=== PATIENT | female | born 1945 | race Two or more races ===

== ENCOUNTER 2025-07-07 09:26 | Outpatient (CLI) | payer OTHER ==
[2025-07-07 10:05] LABS: Hematocrit 40.5 % (36.0-46.0); Hemoglobin 13.7 g/dL (12.2-16.2); Mean Corpuscular Hemoglobin 29.9 pg (28.0-32.0); Mean Corpuscular Volume 88.5 fL (80.0-100.0); Nucleated Red Blood Cells % 0.1 %
[2025-07-07 10:13] LABS: Urine Protein, UAD Negative (Negative)
[2025-07-07 10:23] LABS: Alanine Aminotransferase 12 U/L (7-40); Albumin 4.1 g/dL (3.2-4.8); Alkaline Phosphatase 104 U/L (46-116); Anion Gap 9 (5-15); BUN/Creatinine Ratio 14.2 (10.0-20.0); Blood Urea Nitrogen 20 mg/dL (9-23); Carbon Dioxide 29 mmol/L (20-31); Chloride 106 mmol/L (98-107); Cholesterol 127 mg/dL (< 200); Glucose 82 mg/dL (74-106); HDL Cholesterol 52 mg/dL (40-59); Potassium 3.9 mmol/L (3.5-5.1); Sodium 144 mmol/L (136-145); Total Protein 7.0 g/dL (5.7-8.2); Triglycerides 78 mg/dL (< 150)
[2025-07-07 10:27] LABS: Bilirubin, Total 2.1 mg/dL (0.2-1.0); Calcium 10.5 mg/dL (8.7-10.4)
== END 2025-07-07 17:00 | disposition home or self-care (01) ==
LOC: LAB 09:26
PROVIDERS: ATTEND Internal Medicine
DX: Z13.1 Encounter for screening for diabetes mellitus (principal); Z00.01 Encounter for general adult medical examination with abnormal findings
CPT/HCPCS: 36415; 80053; 80061; 81001; 83036; 84439; 84443; 85025

== ENCOUNTER 2025-09-26 03:56 | Inpatient (IN) | payer OTHER ==
[~2025-09-26] VITALS: Ht 162.6 cm; Wt 93.6 kg
--- NOTE | 2025-09-26 04:05 | ECG ---
[facility] Test Date: 2025-09-26 Test Time: 04:01:06 Pat Name: KELSEA WARREN Department: ED Room: 0290T Gender: F Bandoleer Packer: ARCELIA : 1945 Requested By: VANESSA PETER Order Number: [id number] Reading MD: Nelson Alan Measurements Intervals [place] Rate: 64 P: 51 WA: 168 QRS: 51 QRSD: 127 T: 67 QT: 477 QTc: 493 Interpretive Statements Sinus rhythm Atrial premature complex IVCD, consider atypical LBBB Baseline wander in lead(s) I,aVR,aVL Electronically Signed On 09-30-2025 14:57:27 PST by Nelson Alan Please click the below link to view image of tracing.
--- NOTE | 2025-09-26 04:13 | ED.PDOC ---
GI ASSESSMENT HPI Comments 79-year-old female who came to ER via EMS for abdominal pain. As of 10:00 p.m. last night, she started complaining of right lower quadrant abdominal pain in the, intermittent, nonradiating, 8/10 intensity, associated bouts of nausea and vomiting. Since last bowel movement was 2 days ago. She also complaining of headaches. Patient was given Zofran and Tylenol by paramedics while EN route to the ER Chief Complaint: Abdominal Pain Time Seen by MD: 04:13 Reviewed Notes: Nursery Nurse Notes Allergies: Coded Allergies: NO KNOWN ALLERGIES (Unverified , 09/26/25) Information Source: Patient, Emergency Med Personnel Mode of Arrival: EMS Timing: Hours Duration: Intermittent Past Medical History PAST MEDICAL HISTORY: High Lipids Surgical History (Other): Left hip surgery ALIGNMENT MECHANIC History: Denies all ALIGNMENT MECHANIC Hx Family History Family History: Reviewed,noncontributory to illness Social History Smoker: Non-Smoker Alcohol: Denies ETOH Use Drugs: Denies Drug Use Lives In: Home Constitutional: denies: chills, diaphoresis, fatigue, fever, malaise, sweats, weakness, others EENTM: denies: blurred vision, double vision, ear bleeding, ear discharge, ear drainage, ear pain, ear ringing, eye pain, eye redness, hearing loss, mouth pain, mouth swelling, nasal discharge, nose bleeding, nose congestion, nose pain, photophobia, tearing, throat pain, throat swelling, voice changes, others Respiratory: denies: cough, hemoptysis, orthopnea, SOB at rest, shortness of breath, SOB with excertion, stridor, wheezing, others Cardiovascular: denies: chest pain, dizzy spells, diaphoresis, Dyspnea on exertion, edema, irregular heart beat, left arm pain, lightheadedness, palpitations, PND, syncope, others Gastrointestinal: reports: abdominal pain, constipated, nausea, vomiting; denies: abdomen distended, blood streaked bowels, diarrhea, dysphagia, difficulty swallowing, hematemesis, melena, poor appetite, poor fluid intake, re ctal bleeding, rectal pain, others Genitourinary: denies: abnormal vagina bleeding, burning, dyspareunia, dysuria, flank pain, frequency, hematuria, incontinence, pain, , vagina discharge, urgency, others Neurological: reports: headache; denies: dizziness, fainting, left sided numbness, left sided weakness, numbness, paresthesia, pre-existing deficit, right sided numbness, right sided weakness, seizure, speech problems, tingling, tremors, weakness, others Musculoskeletal: denies: back pain, gout, joint pain, joint swelling, muscle pain, muscle stiffness, neck pain, others Integumetry: denies: bruises, change in color, change in hair/nails, dryness, laceration, lesions, lumps, rash, wounds, others Allergic/Immunocompromised: denies: Difficulty Healing, Frequent Infections, Hives, Itching, others Hematologic/Lymphatic: denies: anemia, blood clots, easy bleeding, easy bruising, swollen glands, others Endocrine: denies: excessive hunger, excessive sweating, excessive thirst, excessive urination, flushing, intolerance to cold, intolerance to heat, unexplained weight gain, unexplained weight loss, others Psychiatric: denies: anxiety, bipolar disorder, depression, hopeless, panic disorder, schizophrenia, sleepless, suicidal, others Physical Exam General Appearance: Moderate Distress, Normal HEENT: Normal ENT Inspection, Pharynx Normal, TMs Normal Neck: Full Range of Motion, Non-Tender, Normal, Normal Inspection Respiratory: Chest Non-Tender, Lungs Clear, No Accessory Muscle Use, No Respiratory Distress, Normal Breath Sounds Cardiovascular: No Edema, No JVD, No Murmur, No Gallop, Normal Peripheral Pulses, Regular Rate/Rhythm Breast Exam: Deferred Gastrointestinal: Diffuse, No Organomegaly, No Pulsatile Mass, Normal Bowel Sounds, Soft Genitalia: Deferred Pelvic: Deferred Rectal: Deferred Extremities: No calf tenderness, Normal capillary refill, Normal inspection, Normal range of motion, Non-tender, No pedal edema Musculoskeletal : Apperance: Normal Neurologic: Alert, wire temperer II-XII nml as Tested, No Motor Deficits, Normal Affect, Normal Mood, No Sensory Deficits Cerebellar Function: NOT DONE Reflexes: NOT DONE Skin: Dry, Normal Color, Warm Peripheral Pulses: 3+ Radial (R), 3+ Radial (L) Lymphatic: No Adenopathy Was a procedure done? Was a procedure done?: No GI differential Dx Differential Diagnosis: Constipation, Diverticular disease, Esophagitis, Gastritis/PUD, Gastroenteritis, Pancreatitis, UTI, Electrolyte Imbalance, Food Poisoning X-Ray, Labs, Meds, VS Vital Signs Date Time Temp Pulse Resp B/P (MAP) Pulse Ox O2 Delivery O2 Flow Rate FiO2 09/26/25 07:54 67 20 94 Nasal Cannula* 2 09/26/25 07:53 97.6 67 20 107/52 (70) 94 97.6 09/26/25 06:47 64 17 114/69 09/26/25 06:36 69 17 95 Nasal Cannula* 2 09/26/25 06:35 98.0 69 17 114/69 (84) 95 98.0 09/26/25 06:17 72 20 165/90 09/26/25 06:08 97.7 72 20 165/70 (101) 97 97.7 09/26/25 04:05 98.7 65 22 139/59 95 98.7 09/26/25 04:01 64 Lab Test 09/26/25 05:15 Range/Units White Blood Count 8.4 4.4-10.8 10^3/uL Red Blood Count 4.54 4.0-5.20 10^6/uL Hemoglobin 13.5 12.2-16.2 g/dL Hematocrit 39.6 36.0-46.0 % Mean Corpuscular Volume 87.3 80.0-100.0 fL Mean Corpuscular Hemoglobin 29.8 28.0-32.0 pg Mean Corpuscular Hemoglobin Concent 34.1 32.0-36.0 g/dL Red Cell Distribution Width 15.0 H 11.8-14.3 % Platelet Count 188 140-450 10^3/uL Mean Platelet Volume 8.3 6.9-10.8 fL Neutrophils (%) (Auto) 89.3 H 37.0-80.0 % Lymphocytes (%) (Auto) 7.5 L 10.0-50.0 % Monocytes (%) (Auto) 3.0 0.0-12.0 % Eosinophils (%) (Auto) 0.1 0.0-7.0 % Basophils (%) (Auto) 0.1 0.0-2.0 % Neutrophils # (Auto) 7.5 1.6-8.6 10 ^3/uL Lymphocytes # (Auto) 0.6 0.4-5.4 10 ^3/uL Monocytes # (Auto) 0.3 0-1.3 10 ^3/uL Eosinophils # (Auto) 0 0-0.8 10 ^3/uL Basophils # (Auto) 0 0-0.2 10 ^3/uL Nucleated Red Blood Cells 0.1 % Sodium Level 142 136-145 mmol/L Potassium Level 3.9 3.5-5.1 mmol/L Chloride Level 102 98-107 mmol/L Carbon Dioxide Level 28 20-31 mmol/L Anion Gap 12 5-15 Blood Urea Nitrogen 26 H 9-23 mg/dL Creatinine 1.24 H 0.550-1.02 mg/dL Glomerular Filtration Rate Calc 44 >90 mL/min BUN/Creatinine Ratio 21.0 H 10.0-20.0 Serum Glucose 173 H 74-106 mg/dL Calcium Level 11.8 H 8.7-10.4 mg/dL Total Bilirubin 2.3 H 0.2-1.0 mg/dL Aspartate Amino Transferase (AST) 30 13-40 U/L Alanine Aminotransferase (ALT) 16 7-40 U/L Alkaline Phosphatase 109 46-116 U/L Total Protein 7.3 5.7-8.2 g/dL Albumin 4.5 3.2-4.8 g/dL Lipase 26 12-53 U/L Current Medications Medications (Trade) Dose Ordered Sig/Anthony Route Start Time Stop Time Status Last Admin Ondansetron HCl (Zofran) 4 mg ONCE ONCE IV 09/26/25 04:30 09/26/25 04:31 DC 09/26/25 06:17 Sodium Chloride 1,000 ml @ 1,000 mls/hr Q1H ONCE IVB 09/26/25 04:30 09/26/25 05:29 DC 09/26/25 06:17 Morphine Sulfate 4 mg ONCE ONCE IV 09/26/25 04:30 09/26/25 04:31 DC 09/26/25 06:17 Patient alert. Vitals stable. Came in for abdominal pain. Blood sugar elevated. Establish intravenous access. Was given fluids. Was given pain medication. WBC within normal limits. Blood pressure elevated. Explained to the patient. Continue monitoring. Time of 1ST Reevaluation: 04:10 Reevaluation 1ST: Unchanged Patient Education/Counseling: Diagnosis, Treatment Family Education/Counseling: No Family Present SEPSIS Sepsis Screen Physician Orders Urinalysis (09/26/25 04:22) Ct Ab Pel With Iv Con Only (09/26/25 04:22) Vital Signs Date Time Temp Pulse Resp B/P (MAP) Pulse Ox O2 Delivery O2 Flow Rate FiO2 09/26/25 07:54 67 20 94 Nasal Cannula* 2 09/26/25 07:53 97.6 67 20 107/52 (70) 94 97.6 09/26/25 06:47 64 17 114/69 09/26/25 06:36 69 17 95 Nasal Cannula* 2 09/26/25 06:35 98.0 69 17 114/69 (84) 95 98.0 09/26/25 06:17 72 20 165/90 09/26/25 06:08 97.7 72 20 165/70 (101) 97 97.7 09/26/25 04:05 98.7 65 22 139/59 95 98.7 09/26/25 04:01 64 Laboratory Tests Test 09/26/25 05:15 White Blood Count 8.4 10^3/uL (4.4-10.8) Medications Medications Dose Ordered Sig/Anthony Route Start Time Stop Time Status Last Admin Dose Admin Morphine Sulfate 4 mg ONCE ONCE IV 09/26/25 04:30 09/26/25 04:31 DC 09/26/25 06:17 Ondansetron HCl 4 mg ONCE ONCE IV 09/26/25 04:30 09/26/25 04:31 DC 09/26/25 06:17 Sodium Chloride 1,000 ml @ 1,000 mls/hr Q1H ONCE IVB 09/26/25 04:30 09/26/25 05:29 DC 09/26/25 06:17 Departure 1 Departure Time of Disposition: 08:03 Impression: Primary Impression: Acute abdominal pain Additional Impressions: Hypertensive urgency Uncontrolled diabetes mellitus Qualified Codes: E13.65 - Other specified diabetes mellitus with hyperglycemia Disposition: 09 ADMITTED INPATIENT Admit to: Med Surg Condition: Guarded Critical Care Note Critical Care Time?: No Stability Stability form required: No Heart Score Heart Score: Heart Score Response (Comments) Value History N/A 0 EKG N/A 0 Age N/A 0 Risk Factors N/A 0 Troponin N/A 0 Total 0 I personally scribed for VANESSA PETER MD ([email or web address]) on 09/26/25 at 04:13. Electronically submitted by Jarad Ramesh ([email or web address]). VANESSA PETER MD Sep 26, 2025 04:13 COMPA AG MD Sep 26, 2025 08:04
[2025-09-26] MEDS: MORPHINE SULFATE 4 MG/ML SYR/VIAL IV ONE (06:17)
[2025-09-26] MEDS: SODIUM CHLORIDE 0.9% 1,000 ML IVB ONE (06:17)
[2025-09-26] MEDS: ONDANSETRON HCL 4 MG/2 ML VIAL IV ONE (06:17)
[2025-09-26 06:32] LABS: Hematocrit 39.6 % (36.0-46.0); Hemoglobin 13.5 g/dL (12.2-16.2); Mean Corpuscular Hemoglobin 29.8 pg (28.0-32.0); Mean Corpuscular Volume 87.3 fL (80.0-100.0); Nucleated Red Blood Cells % 0.1 %
[2025-09-26 06:36] VITALS: PULSE 69; RESP 17; O2SAT 95
[2025-09-26 06:49] LABS: Alanine Aminotransferase 16 U/L (7-40); Albumin 4.5 g/dL (3.2-4.8); Alkaline Phosphatase 109 U/L (46-116); Anion Gap 12 (5-15); BUN/Creatinine Ratio 21.0 (10.0-20.0); Carbon Dioxide 28 mmol/L (20-31); Chloride 102 mmol/L (98-107); Lipase 26 U/L (12-53); Potassium 3.9 mmol/L (3.5-5.1); Sodium 142 mmol/L (136-145); Total Protein 7.3 g/dL (5.7-8.2)
[2025-09-26 06:53] LABS: Bilirubin, Total 2.3 mg/dL (0.2-1.0); Blood Urea Nitrogen 26 mg/dL (9-23); Calcium 11.8 mg/dL (8.7-10.4); Glucose 173 mg/dL (74-106)
[2025-09-26 07:54] VITALS: PULSE 67; RESP 20; O2SAT 94
[2025-09-26] MEDS: IOHEXOL 300 MG/ML 100ML BOTTLE IJ ONE (08:14)
--- NOTE | 2025-09-26 08:33 | DVH ---
Exam: CT CT AB PEL WITH IV CON ONLY History: abd pain COMPARISON: None Technique: Multidetector spiral CT of the abdomen and pelvis was performed from lung bases to pubic symphysis. Intravenous contrast was administered during this examination. Portal venous imaging was obtained. Axial, coronal and sagittal multiplanar reformats were performed by the technologist on a separate workstation. Radiation Dose : 1. Abdomen/Pelvis: CTDIvol 21 mGy, DLP 1086 mGy*cm. Findings: Lung Bases: No acute or significant lung base finding. Normal heart size. No pleural or pericardial effusion. Liver: The liver is normal in size. No focal lesions. Normal hepatic vascular enhancement. Gallbladder and Biliary Tree: Post cholecystectomy. Spleen: Unremarkable Pancreas: The pancreas is normal in appearance without focal lesions or abnormal enhancement. Adrenal Glands: Unremarkable Kidneys: No hydronephrosis. Bladder: Unremarkable Bowel: Large hiatal hernia containing most of the stomach in the left posterior hemithorax. The stomach is moderately distended with fluid. Moderate wall thickening of the gastric antrum. Moderate wall thickening of the descending and rectosigmoid colon. Colonic diverticulosis. Moderate volume colonic stool. Moderate to large volume stool in the rectum. The small bowel is normal in caliber and distribution. The appendix is not visualized; however, no secondary findings of acute appendicitis identified. Ascites: Absent Lymphadenopathy: No mesenteric, retroperitoneal or periportal lymphadenopathy. Abdominal Wall and Mesentery: Small fat containing umbilical hernia. Vasculature: The visualized abdominal aorta is normal in size and caliber. Abdominal and pelvic vessels demonstrate normal enhancement. Pelvic Organs: Unremarkable Musculoskeletal: Degenerative changes of the spine. Left hip arthroplasty. Moderate to severe degenerative changes of the right hip. No aggressive focal bony lesions, acute fractures or dislocation. IMPRESSION: Large hiatal hernia containing most of the stomach in the left posterior hemithorax. The stomach is moderately distended with fluid. Moderate wall thickening of the gastric antrum ; nonspecific and possibly gastritis. Moderate wall thickening of the descending and rectosigmoid colon. This may be related to underdistention or mild colitis. Moderate to large volume stool in the rectum. Colonic diverticulosis. Radiation optimization: All CT scans at this facility use at least one of these dose optimization techniques: automated exposure control mA and/or kV adjustment per patient size (includes targeted exams where dose is matched to clinical indication) or iterative reconstruction.
[2025-09-26] MEDS: SODIUM CHLORIDE 0.9% 1,000 ML IV SCH (10:15)
[2025-09-26] MEDS: SODIUM CHLORIDE 0.9% 500 ML IV ONE (10:15)
[2025-09-26] MEDS ORDERED: MORPHINE SULFATE INJ 2 MG/ml SYRG IV PRN (10:15)
[2025-09-26] MEDS ORDERED: POLYETHYLENE GLYCOL 17 GM PWDR PO PRN (10:15)
[2025-09-26] MEDS ORDERED: NITROGLYCERIN 0.4 MG SL TAB SL PRN (10:15)
--- NOTE | 2025-09-26 10:22 | DVHHPRES ---
History of Present Illness Resident Creating Document: OZIEL MARQUEZ RESIDENT History of Present Illness Christine Bradshaw is a 79-year-old female patient who presents to the ED with chief complaint of generalized weakness with mechanical fall no loss of consciousness or trauma to her left hip, with posterior nausea and nonbloody vomiting with brown/white emesis, patient believes these symptoms were secondary to eating excessively in at 3:00 p.m.. Patient also reports intentional weight loss of over 50 lb in the past two months (234 lb to 189 lb), she is avoiding sweets. Patient did present episode of nonbloody diarrhea approximately one month ago with lasted five days (4-5 bowel movements with brown stool a day of watery stool), which then was followed by constipation which will last a proximally three days. Patient also presents numbness on right upper limb which is exacerbation after sleeping. Denies any other associated symptom. Past medical history: Hypertension, gastritis, diverticulosis, GERD, COPD with previous home oxygen requirement (has been weaned off one year ago) arthritis, one episode of seizures a proximally one year ago in [place] (no antiseizure medication), chronic kidney disease stage IIIB, bladder prolapse status postop with recurrence. Surgical history: Bilateral knee replacement: Cholecystectomy, left hip replacement, prolapse repair, colonoscopy five years ago within normal limits Family history: Mother had colon cancer Social history: Lives in [place] with family (next of kin daughter). Suffered from secondhand smoking. Denies current tobacco, alcohol and other drug abuse Allergies: Denies Home medication: Amlodipine, pantoprazole, hydrochlorothiazide, citalopram Patient seen and examined at bedside. Currently has no new complaints. Admitted for further evaluation. Past Medical History Per HPI Past Surgical History Per HPI Family History Per HPI Past Social History Per HPI Review of Systems Review of Systems Per HPI Allergies: Coded Allergies: NO KNOWN ALLERGIES (Unverified , 09/26/25) Exam Vital Signs Vital Signs Date Time Temp Pulse Resp B/P (MAP) Pulse Ox O2 Delivery O2 Flow Rate FiO2 09/26/25 07:54 67 20 94 Nasal Cannula* 2 09/26/25 07:53 97.6 107/52 (70) 97.6 Exam Patient lying in bed, in no acute distress General: Lucid, afebrile, mucosae are dry Cardiovascular: Normal S1 and S2. No murmurs, gallops or rubs Respiratory: Normal ventilation mechanics. Clear lung sounds on auscultation Abdomen: Soft, mild tenderness on palpation in epigastrium and right upper quadrant, positive Jean's sign, rest of abdomen nontender, no organomegaly, normal bowel sounds, can hear bowel sounds in left hemithorax MSK/skin: Mobilizes 4 limbs. Skin is dry and warm Neurological: Oriented in 3 spheres. No motor no sensitive deficits. Pupils are isocoric and reactive Labs/Xrays Labs Test 09/26/25 05:15 Range/Units White Blood Count 8.4 4.4-10.8 10^3/uL Red Blood Count 4.54 4.0-5.20 10^6/uL Hemoglobin 13.5 12.2-16.2 g/dL Hematocrit 39.6 36.0-46.0 % Mean Corpuscular Volume 87.3 80.0-100.0 fL Mean Corpuscular Hemoglobin 29.8 28.0-32.0 pg Mean Corpuscular Hemoglobin Concent 34.1 32.0-36.0 g/dL Red Cell Distribution Width 15.0 H 11.8-14.3 % Platelet Count 188 140-450 10^3/uL Mean Platelet Volume 8.3 6.9-10.8 fL Neutrophils (%) (Auto) 89.3 H 37.0-80.0 % Lymphocytes (%) (Auto) 7.5 L 10.0-50.0 % Monocytes (%) (Auto) 3.0 0.0-12.0 % Eosinophils (%) (Auto) 0.1 0.0-7.0 % Basophils (%) (Auto) 0.1 0.0-2.0 % Neutrophils # (Auto) 7.5 1.6-8.6 10 ^3/uL Lymphocytes # (Auto) 0.6 0.4-5.4 10 ^3/uL Monocytes # (Auto) 0.3 0-1.3 10 ^3/uL Eosinophils # (Auto) 0 0-0.8 10 ^3/uL Basophils # (Auto) 0 0-0.2 10 ^3/uL Nucleated Red Blood Cells 0.1 % Sodium Level 142 136-145 mmol/L Potassium Level 3.9 3.5-5.1 mmol/L Chloride Level 102 98-107 mmol/L Carbon Dioxide Level 28 20-31 mmol/L Anion Gap 12 5-15 Blood Urea Nitrogen 26 H 9-23 mg/dL Creatinine 1.24 H 0.550-1.02 mg/dL Glomerular Filtration Rate Calc 44 >90 mL/min BUN/Creatinine Ratio 21.0 H 10.0-20.0 Serum Glucose 173 H 74-106 mg/dL Calcium Level 11.8 H 8.7-10.4 mg/dL Total Bilirubin 2.3 H 0.2-1.0 mg/dL Aspartate Amino Transferase (AST) 30 13-40 U/L Alanine Aminotransferase (ALT) 16 7-40 U/L Alkaline Phosphatase 109 46-116 U/L Total Protein 7.3 5.7-8.2 g/dL Albumin 4.5 3.2-4.8 g/dL Lipase 26 12-53 U/L SEPSIS Sepsis Screen Date sepsis recognized/suspect: Sep 26, 2025 Time Sepsis recognized/suspect: 639 Recent Procedure: No On Antibiotic Therapy: No Respiratory Rate >20: No Heart Rate >90: No Temp<36 C (96.8 F) or >38.3 C: No SBP <90 or MAP <65 mmHG: No New Acute Mental Status Change: No Is the patient on CPAP, BIPAP,: No Physician Orders Urinalysis (09/26/25 04:22) Ct Ab Pel With Iv Con Only (09/26/25 04:22) Vitamin D, 25-Hydroxy (09/26/25 10:15) Vitamin B12 (09/26/25 10:15) Urinalysis (09/26/25 10:15) Thyroid Stimulating Hormone (09/26/25 10:15) PTPTT (09/26/25 10:15) Phosphorus (09/26/25 10:15) Magnesium (09/26/25 10:15) Lipid Panel (09/26/25 10:15) Lipase (09/26/25 10:15) Lactic Acid W/ Reflex Order (09/26/25 10:15) Hemoglobin A1c (09/26/25 10:15) Drug Screen (09/26/25 10:15) Ammonia (09/26/25 10:15) Complete Blood Count (09/26/25 10:15) Comprehensive Metabolic Panel (09/26/25 10:15) Admit (09/26/25 10:15) Code Status (09/26/25 10:15) Acetaminophen Tablet (Tylenol Tablet) (09/26/25 10:15) Ondansetron Hcl (Zofran) (09/26/25 10:15) Complete Blood Count (09/27/25 04:00) Comprehensive Metabolic Panel (09/27/25 04:00) Npo (Nothing By Mouth) Diet (09/26/25 Lunch) Echo 2d Mode Cardiac Dop (09/26/25 10:15) Lovenox 40mg (09/27/25 10:00) Nitroglycerin Sublingual (Ntrostat Subli (09/26/25 10:15) Morphine Sulfate Injection (09/26/25 10:15) Oxygen By Nasal Cannula (09/26/25 10:15) Stat Ekg For Chest Pain (09/26/25 10:15) Notify Md Of Changes From Base (09/26/25 10:15) Sand Sifter For 24 Hours (09/26/25 10:15) Emergency Dysrhythmia Protocol (09/26/25 10:15) Rhythm Strips Once Every Shift (09/26/25 10:15) Parathyroid Hormone Intact (09/26/25 10:15) NS (09/26/25 10:15) NS (09/26/25 10:15) Polyethylene Glycol 17g Powder (Miralax (09/26/25 10:15) Vital Signs Date Time Temp Pulse Resp B/P (MAP) Pulse Ox O2 Delivery O2 Flow Rate FiO2 09/26/25 07:54 67 20 94 Nasal Cannula* 12 2709/26/25 07:53 97.6 67 20 107/52 (70) 94 97.6 09/26/25 06:47 64 17 114/69 09/26/25 06:36 69 17 95 Nasal Cannula* 2 09/26/25 06:35 98.0 69 17 114/69 (84) 95 98.0 09/26/25 06:17 72 20 165/90 09/26/25 06:08 97.7 72 20 165/70 (101) 97 97.7 09/26/25 04:05 98.7 65 22 139/59 95 98.7 09/26/25 04:01 64 Laboratory Tests Test 09/26/25 05:15 White Blood Count 8.4 10^3/uL (4.4-10.8) Medications Medications Dose Ordered Sig/Anthony Route Start Time Stop Time Status Last Admin Dose Admin Morphine Sulfate 4 mg ONCE ONCE IV 09/26/25 04:30 09/26/25 04:31 DC 09/26/25 06:17 4 MG Ondansetron HCl 4 mg ONCE ONCE IV 09/26/25 04:30 09/26/25 04:31 DC 09/26/25 06:17 4 MG Sodium Chloride 1,000 ml @ 1,000 mls/hr Q1H ONCE IVB 09/26/25 04:30 09/26/25 05:29 DC 09/26/25 06:17 1,000 MLS/HR Assessment/Plan Assessment/Plan ASSESSMENT Symptomatic hypercalcemia (generalized weakness and constipation) - probably secondary to hydrochlorothiazide Mechanical fall secondary to generalized weakness Rule out GI obstruction SUKHWINDER hemodynamically mediated (VMN) on CKD stage 3 B Large hiatal hernia Probable Colitis Gastritis GERD Rule out left hip fracture (previous left hip replacement) disease Hyperbilirubinemia COPD History of seizures Status post bilateral knee replacement Status post cholecystectomy Status post bladder prolapse repair with recurrence Obesity PLAN Patient admitted to telemetry Completed abdomen and pelvis CT which showed large hiatal hernia and left hemithorax, colitis, large stool burden and moderate gastric antrum thickening (compatible with gastritis) Probable cause of hypercalcemia is hydrochlorothiazide. Discontinued. Indicated IV fluids, IV pantoprazole and NPO. Indicated Fleet enema. Ordered PTH Ordered Gastrografin to rule out obstruction If patient presents obstruction, consult rn neurosurgical. Ordered x-ray of left hip and pelvis. Goals of care discussed with patient for over 18 minutes: DNR/DNI Discussed plan with Dr. Trinidad, patient and nurses: Patient admitted to telemetry. Currently with IV fluids, IV pantoprazole, NPO, and Fleet enema. Pending complementary workup to rule out GI obstruction. Probable cause of hypercalcemia is hydrochlorothiazide, discontinued the this time. Plan discussed with: Patient, Other My Orders Orders - OZIEL MARQUEZ RESIDENT Procedure Category Date Status Time Vitamin D, 25-Hydroxy LAB 09/26/25 Transmitted 10:15 Vitamin B12 LAB 09/26/25 Transmitted 10:15 Urinalysis LAB 09/26/25 Transmitted 10:15 Thyroid Stimulating LAB 09/26/25 Transmitted Hormone 10:15 PTPTT LAB 09/26/25 Transmitted 10:15 Phosphorus LAB 09/26/25 Transmitted 10:15 Magnesium LAB 09/26/25 Transmitted 10:15 Lipid Panel LAB 09/26/25 Transmitted 10:15 Lipase LAB 09/26/25 Transmitted 10:15 Lactic Acid W/ Reflex LAB 09/26/25 Transmitted Order 10:15 Hemoglobin A1c LAB 09/26/25 Transmitted 10:15 Drug Screen LAB 09/26/25 Transmitted 10:15 Ammonia LAB 09/26/25 Transmitted 10:15 Complete Blood Count LAB 09/26/25 Transmitted 10:15 Comprehensive LAB 09/26/25 Transmitted Metabolic Panel 10:15 Admit ADMIT 09/26/25 Transmitted 10:15 Code Status CODE 09/26/25 Transmitted 10:15 Acetaminophen Tablet PHA 09/26/25 Transmitted (Tylenol Tablet) 10:15 Ondansetron Hcl PHA 09/26/25 Transmitted (Zofran) 10:15 Complete Blood Count LAB 09/27/25 Verified 04:00 Comprehensive LAB 09/27/25 Verified Metabolic Panel 04:00 Npo (Nothing By DIET 09/26/25 Transmitted Mouth) Diet Lunch Echo 2d Mode Cardiac US 09/26/25 Transmitted DOP 10:15 Lovenox 40mg PHA 09/27/25 Transmitted 10:00 Nitroglycerin PHA 09/26/25 Verified Sublingual (Ntrostat 10:15 Morphine Sulfate PHA 09/26/25 Verified Injection 10:15 Oxygen By Nasal RT 09/26/25 Verified Cannula 10:15 Stat Ekg For Chest [facility] 09/26/25 Verified Pain 10:15 Notify Md Of Changes [facility] 09/26/25 Verified From Base 10:15 Sand Sifter For [facility] 09/26/25 Verified 24 Hours 10:15 Emergency Dysrhythmia [facility] 09/26/25 Verified Protocol 10:15 Rhythm Strips Once [facility] 09/26/25 Verified Every Shift 10:15 Parathyroid Hormone LAB 09/26/25 Verified Intact 10:15 NS PHA 09/26/25 Verified 10:15 NS PHA 09/26/25 Verified 10:15 Polyethylene Glycol PHA 09/26/25 Verified 17g Powder (Miralax 10:15 Date of Service: Sep 26, 2025 Billing Provider: JOSEMANUEL TRINIDAD MD Common Visit Codes: 72089-[id number] INP/OBS CARE (HIGH) Secondary Visit Codes: 45145-[id number] CARE PLAN 30 MINUTES OZIEL MARQUEZ RESIDENT Sep 26, 2025 10:22
[2025-09-26] MEDS: FLEET ENEMA(ADULT) 135 ML PR ONE (10:30)
[2025-09-26 10:52] LABS: Urine Protein, UAD 1+ (Negative)
[2025-09-26 11:06] LABS: Opiate Scree,Urine Neg (NEGATIVE)
[2025-09-26 11:08] LABS: Amphetamine Screen, Urine Neg (NEGATIVE); Barbiturate Scree,Urine Neg (NEGATIVE); Benzodiazephine Screen, Urine Neg (NEGATIVE); Cannabinoid Screen, Urine Neg (NEGATIVE); Cocaine Screen, Urine Neg (NEGATIVE); Phencyclidine Screen, Urine Neg (NEGATIVE)
--- NOTE | 2025-09-26 11:18 | DVH ---
CHEST RADIOGRAPH Indication: SOB Technique: Single frontal view of the chest was obtained COMPARISON: None FINDINGS: Cardiomegaly. Mild vascular congestion. Small left pleural effusion. Left midlung atelectasis. No pneumothorax. No acute osseous abnormality IMPRESSION: Cardiomegaly. Mild vascular congestion. Small left pleural effusion.
[2025-09-26 11:34] LABS: Hematocrit 36.3 % (36.0-46.0); Hemoglobin 12.1 g/dL (12.2-16.2); Mean Corpuscular Hemoglobin 29.3 pg (28.0-32.0); Mean Corpuscular Volume 88.3 fL (80.0-100.0); Nucleated Red Blood Cells % 0.0 %
[2025-09-26] MEDS: PANTOPRAZOLE 40 MG/10 ML VIAL INJ IV ONE (11:45)
[2025-09-26 11:47] LABS: INR 1.07 (0.9-1.15); Partial Thromboplastin Time 27.3 SEC (24.5-34.5); Prothrombin Time 11.3 sec (9.3-11.8)
[2025-09-26 11:54] LABS: Alanine Aminotransferase 16 U/L (7-40); Albumin 3.8 g/dL (3.2-4.8); Alkaline Phosphatase 99 U/L (46-116); Anion Gap 9 (5-15); BUN/Creatinine Ratio 18.2 (10.0-20.0); Carbon Dioxide 30 mmol/L (20-31); Chloride 105 mmol/L (98-107); Cholesterol 106 mg/dL (< 200); Glucose 95 mg/dL (74-106); HDL Cholesterol 53 mg/dL (40-59); Magnesium 1.7 mg/dL (1.6-2.6); Potassium 4.0 mmol/L (3.5-5.1); Sodium 144 mmol/L (136-145); Total Protein 6.4 g/dL (5.7-8.2); Triglycerides 57 mg/dL (< 150)
[2025-09-26 12:03] LABS: Bilirubin, Total 1.7 mg/dL (0.2-1.0); Blood Urea Nitrogen 25 mg/dL (9-23); Calcium 10.9 mg/dL (8.7-10.4)
[2025-09-26 12:11] LABS: Lipase 23 U/L (12-53)
--- NOTE | 2025-09-26 12:57 | DVH ---
CLINICAL INDICATION: MEchanical fall TECHNIQUE: 1 radiographic views of the pelvis were obtained. Comparison: None FINDINGS/IMPRESSION: Bipolar right hip prosthesis is in position and there is no dislocation. Possible nondisplaced fracture of the superior and inferior pubic ramus on the right.
[2025-09-26 13:16] VITALS: BP 116/78; PULSE 68; RESP 18; TEMP 98.2; O2SAT 94
[2025-09-26 17:00] VITALS: BP 114/57; PULSE 49; RESP 17; TEMP 99.1; O2SAT 98
[2025-09-26] MEDS: ACETAMINOPHEN 325 MG TAB PO PRN (19:52)
[2025-09-26 20:00] VITALS: PULSE 54; PULSE 57; RESP 17; O2SAT 95
[2025-09-26 21:00] VITALS: BP 115/62; PULSE 54; RESP 19; TEMP 98; O2SAT 95
[2025-09-26] MEDS: PANTOPRAZOLE 40 MG/10 ML VIAL INJ IV SCH (21:17)
[2025-09-27] VITALS (8 sets, daily range): BP systolic 110–139; BP diastolic 61–80; PULSE 52–75; RESP 16–19; TEMP 97.1–98.9; O2SAT 91–98
[2025-09-27 06:08] LABS: Hematocrit 34.8 % (36.0-46.0); Hemoglobin 11.7 g/dL (12.2-16.2); Mean Corpuscular Hemoglobin 29.7 pg (28.0-32.0); Mean Corpuscular Volume 88.7 fL (80.0-100.0); Nucleated Red Blood Cells % 0.1 %
[2025-09-27 06:36] LABS: Alanine Aminotransferase 13 U/L (7-40); Albumin 3.4 g/dL (3.2-4.8); Alkaline Phosphatase 78 U/L (46-116); Anion Gap 10 (5-15); BUN/Creatinine Ratio 19.8 (10.0-20.0); Calcium 9.9 mg/dL (8.7-10.4); Carbon Dioxide 27 mmol/L (20-31)
[2025-09-27 06:44] LABS: Bilirubin, Total 1.4 mg/dL (0.2-1.0); Blood Urea Nitrogen 23 mg/dL (9-23); Chloride 108 mmol/L (98-107); Glucose 69 mg/dL (74-106); Potassium 3.2 mmol/L (3.5-5.1); Sodium 145 mmol/L (136-145); Total Protein 5.6 g/dL (5.7-8.2)
[2025-09-27] MEDS: ENOXAPARIN SOD 40 MG/0.4 ML SYRINGE SC SCH (09:51)
[2025-09-28] VITALS (8 sets, daily range): BP systolic 111–130; BP diastolic 51–72; PULSE 50–70; RESP 18–20; TEMP 97.8–99.3; O2SAT 95–98
[2025-09-28 05:34] LABS: Hematocrit 33.7 % (36.0-46.0); Hemoglobin 11.2 g/dL (12.2-16.2); Mean Corpuscular Hemoglobin 29.3 pg (28.0-32.0); Mean Corpuscular Volume 88.3 fL (80.0-100.0); Nucleated Red Blood Cells % 0.0 %
[2025-09-28 05:38] LABS: Anion Gap 6 (5-15); Carbon Dioxide 30 mmol/L (20-31)
[2025-09-28 05:40] LABS: Calcium 10.1 mg/dL (8.7-10.4)
[2025-09-28 05:44] LABS: Glucose 78 mg/dL (74-106)
[2025-09-28 05:45] LABS: BUN/Creatinine Ratio 16.5 (10.0-20.0); Blood Urea Nitrogen 19 mg/dL (9-23)
[2025-09-28 05:46] LABS: Chloride 109 mmol/L (98-107); Potassium 3.2 mmol/L (3.5-5.1); Sodium 145 mmol/L (136-145)
[2025-09-28] MEDS: POTASSIUM CHL 20 Meq TABLET PO ONE (06:52)
[2025-09-28] MEDS: MAGNESIUM OXIDE 400 MG TAB PO ONE (06:53)
--- NOTE | 2025-09-28 09:29 | DVHSR ---
APPROVED REPORT EXAM: LIMITED Two-dimensional and M-mode echocardiogram with Doppler and color Doppler. Blood Pressure: 112/61 mmHg INDICATION abdominal pain RISK FACTORS Obesity: Height: 63, Weight: 200 DIMENSIONS LVDd 3.8 (3.8-5.7cm) LA (2D) 4.0 (1.9-4.0cm) Aortic Root 3.9 (2.0-3.7cm) LVDs 2.4 (2.5-4.0cm) LA (MM) (1.9-4.0cm) Aortic Cusp Exc 1.5 (1.5-2.0cm) EF (%) 65.0 (55-70%) Rt. Atrium 3.8 (1.9-4.0cm) Asc. Aorta cm IVSd 1.1 (0.7-1.1cm) RV (D) (1.8-2.4cm) PWd 1.2 (0.7-1.1cm) Mitral Valve Mitral Mitral Stenosis E wave 0.69m/s MV Mean GR. mmHg A wave 0.78m/s MV Peak GR. mmHg E/A ratio 0.9 2D MVA cm2 DECEL Time 307ms PRESS 1/2 Time ms Aortic Valve Aortic Valve Aortic Stenosis V1 1.50m/s AO Mean GR. 8mmHg V2 1.85m/s AO Peak GR. 14mmHg LVOT Diameter 2.1 (1.8-2.4cm) Doppler JEANINE 2.81cm2 Pulmonic Valve V2 0.96m/s Tricuspid Valve TR Velocity 2.36m/s RVSP 25mmHg Other Information Quality : Limited Rhythm : Technically limited study due to patient position.body habitus. Conclusion lvef 60% by visual estimate mild LVH normal rv function left atrium enlarged no severe valve abnormalities noted
--- NOTE | 2025-09-28 13:22 | DVHPN2 ---
Reviewed: Care Plan, H&P, Labs, Medications Changes from previous H/P or p: No Changes General: Per HPI Objective Vitals Vital Signs Date Time Temp Pulse Resp B/P (MAP) Pulse Ox O2 Delivery O2 Flow Rate FiO2 09/28/25 12:41 98.5 50 18 112/51 (71) 96 98.5 09/27/25 20:00 Nasal Cannula* 3 32 Intake/Output Intake and Output 09/28/25 07:00 Intake Total 1500 ml Balance 1500 ml Intake Oral 250 ml IV Total 1250 ml # Voids 3 # Bowel Movements 1 General Appearance: Alert, Oriented X3 Cardiovascular: Regular rate, Normal S1 Medications Current Medications Medications Dose Ordered Sig/Anthony Route Start Time Stop Time Status Last Admin Dose Admin Acetaminophen 325 mg Q4HP PRN PO 09/26/25 10:15 09/26/25 19:52 325 MG Ondansetron HCl 4 mg Q4HP PRN IV 09/26/25 10:15 Enoxaparin Sodium 40 mg DAILY SC 09/27/25 10:00 09/28/25 10:47 40 MG Nitroglycerin 0.4 mg Q5MINP PRN SL 09/26/25 10:15 Morphine Sulfate 2 mg Q30M PRN IV 09/26/25 10:15 Sodium Chloride 1,000 ml @ 75 mls/hr [id number] IV 09/26/25 10:15 09/28/25 05:21 75 MLS/HR Metronidazole 100 ml @ 100 mls/hr Q8HR IV 09/26/25 22:00 09/28/25 05:21 100 MLS/HR Ceftriaxone Sodium 50 ml @ 100 mls/hr DAILY@09 IV 09/27/25 09:00 09/28/25 10:46 100 MLS/HR Pantoprazole Sodium 40 mg BID IV 09/26/25 22:00 09/28/25 10:46 40 MG Laboratory Results Laboratory Tests 09/28/25 04:48 Chemistry Test 09/28/25 04:48 Calcium Level 10.1 mg/dL (8.7-10.4) Urinalysis Test 09/26/25 10:42 Urine Color Light-yellow (Yellow) Urine Clarity Clear (Clear) Urine pH 7.5 (5.0-9.0) Urine Specific [place] 1.025 (1.001-1.035) Urine Protein 1+ (Negative) H Urine Ketones Negative (Negative) Urine Blood Negative /uL (Negative) Urine Nitrite Negative (Negative) Urine Bilirubin Negative (Negative) Urine Urobilinogen Normal mg/dL (Negative) Urine Leukocyte Esterase Negative /uL (Negative) Urine RBC None seen /hpf (0 - 4) Urine Microscopic WBC < 1 /HPF (0-5) Urine Squamous Epithelial Cells Few /hpf (<5) Urine Bacteria None seen /hpf (None Seen) Urine Glucose Normal mg/dL (Normal) Labs and/or images reviewed: Labs reviewed by me, Image(s) reviewed by me Assessment/Plan Assessment/Plan Christine Bradshaw is a 79-year-old female patient who presents to the ED with chief complaint of generalized weakness with mechanical fall no loss of consciousness or trauma to her left hip, with posterior nausea and nonbloody vomiting with brown/white emesis, patient believes these symptoms were secondary to eating excessively in at 3:00 p.m.. Patient also reports intentional weight loss of over 50 lb in the past two months (234 lb to 189 lb), she is avoiding sweets. Patient did present episode of nonbloody diarrhea approximately one month ago with lasted five days (4-5 bowel movements with brown stool a day of watery stool), which then was followed by constipation which will last a proximally three days. Patient also presents numbness on right upper limb which is exacerbation after sleeping. Denies any other associated symptom. Past medical history: Hypertension, gastritis, diverticulosis, GERD, COPD with previous home oxygen requirement (has been weaned off one year ago) arthritis, one episode of seizures a proximally one year ago in [place] (no antiseizure medication), chronic kidney disease stage IIIB, bladder prolapse status postop with recurrence. Surgical history: Bilateral knee replacement: Cholecystectomy, left hip replacement, prolapse repair, colonoscopy five years ago within normal limits Family history: Mother had colon cancer Social history: Lives in [place] with family (next of kin daughter). Suffered from secondhand smoking. Denies current tobacco, alcohol and other drug abuse Allergies: Denies Home medication: Amlodipine, pantoprazole, hydrochlorothiazide, citalopram Patient seen and examined at bedside. Currently has no new complaints. Admitted for further evaluation. Symptomatic hypercalcemia (generalized weakness and constipation) - probably secondary to hydrochlorothiazide Mechanical fall secondary to generalized weakness Rule out GI obstruction SUKHWINDER hemodynamically mediated (VMN) on CKD stage 3 B Large hiatal hernia Probable Colitis Gastritis GERD Rule out left hip fracture (previous left hip replacement) disease Hyperbilirubinemia COPD History of seizures Status post bilateral knee replacement Status post cholecystectomy Status post bladder prolapse repair with recurrence Obesity mechanical fall with possible left hip fracture PLAN Patient admitted to telemetry Completed abdomen and pelvis CT which showed large hiatal hernia and left hemithorax, colitis, large stool burden and moderate gastric antrum thickening (compatible with gastritis) Probable cause of hypercalcemia is hydrochlorothiazide. Discontinued. Indicated IV fluids, IV pantoprazole and NPO. Indicated Fleet enema. Ordered PTH Ordered Gastrografin to rule out obstruction If patient presents obstruction, consult surgical coordinator. Ordered x-ray of left hip and pelvis. Goals of care discussed with patient for over 18 minutes: DNR/DNI Plan discussed with: Patient My Orders Orders - SOPHIE SILVA DO Procedure Category Date Status Time Mechanical Soft Diet DIET 09/27/25 Transmitted Dinner Date of Service: Sep 27, 2025 Billing Provider: SOPHIE SILVA DO Common Visit Codes: [id number] INP/OBS CARE(HIGH) SOPHIE SILVA DO Sep 28, 2025 13:22
[2025-09-28] MEDS: FLEET ENEMA(ADULT) 135 ML PR ONE (21:03)
[2025-09-29] VITALS (7 sets, daily range): BP systolic 111–132; BP diastolic 60–75; PULSE 55–74; RESP 14–19; TEMP 97.2–98.6; O2SAT 95–99
--- NOTE | 2025-09-29 01:04 | DVHPN2 ---
Reviewed: Care Plan, H&P, Labs, Medications Changes from previous H/P or p: No Changes General: Per HPI Objective Vitals Vital Signs Date Time Temp Pulse Resp B/P (MAP) Pulse Ox O2 Delivery O2 Flow Rate FiO2 09/28/25 21:00 99.3 61 18 111/58 (75) 96 99.3 09/28/25 20:00 Nasal Cannula* 3 32 Intake/Output Intake and Output 09/29/25 06:59 Intake Total 2250 ml Balance 2250 ml Intake Oral 1200 ml IV Total 1050 ml # Voids 6 # Bowel Movements 1 General Appearance: Alert, Oriented X3 Cardiovascular: Regular rate, Normal S1 Medications Current Medications Medications Dose Ordered Sig/Anthony Route Start Time Stop Time Status Last Admin Dose Admin Acetaminophen 325 mg Q4HP PRN PO 09/26/25 10:15 09/28/25 21:02 325 MG Ondansetron HCl 4 mg Q4HP PRN IV 09/26/25 10:15 Enoxaparin Sodium 40 mg DAILY SC 09/27/25 10:00 09/28/25 10:47 40 MG Nitroglycerin 0.4 mg Q5MINP PRN SL 09/26/25 10:15 Morphine Sulfate 2 mg Q30M PRN IV 09/26/25 10:15 Sodium Chloride 1,000 ml @ 75 mls/hr [id number] IV 09/26/25 10:15 09/28/25 21:11 75 MLS/HR Metronidazole 100 ml @ 100 mls/hr Q8HR IV 09/26/25 22:00 09/28/25 21:02 100 MLS/HR Ceftriaxone Sodium 50 ml @ 100 mls/hr DAILY@09 IV 09/27/25 09:00 09/28/25 10:46 100 MLS/HR Pantoprazole Sodium 40 mg BID IV 09/26/25 22:00 09/28/25 21:03 40 MG Laboratory Results Laboratory Tests 09/28/25 04:48 Chemistry Test 09/28/25 04:48 Calcium Level 10.1 mg/dL (8.7-10.4) Urinalysis Test 09/26/25 10:42 Urine Color Light-yellow (Yellow) Urine Clarity Clear (Clear) Urine pH 7.5 (5.0-9.0) Urine Specific [place] 1.025 (1.001-1.035) Urine Protein 1+ (Negative) H Urine Ketones Negative (Negative) Urine Blood Negative /uL (Negative) Urine Nitrite Negative (Negative) Urine Bilirubin Negative (Negative) Urine Urobilinogen Normal mg/dL (Negative) Urine Leukocyte Esterase Negative /uL (Negative) Urine RBC None seen /hpf (0 - 4) Urine Microscopic WBC < 1 /HPF (0-5) Urine Squamous Epithelial Cells Few /hpf (<5) Urine Bacteria None seen /hpf (None Seen) Urine Glucose Normal mg/dL (Normal) Assessment/Plan Assessment/Plan Christine Bradshaw is a 79-year-old female patient who presents to the ED with chief complaint of generalized weakness with mechanical fall no loss of consciousness or trauma to her left hip, with posterior nausea and nonbloody vomiting with brown/white emesis, patient believes these symptoms were secondary to eating excessively in at 3:00 p.m.. Patient also reports intentional weight loss of over 50 lb in the past two months (234 lb to 189 lb), she is avoiding sweets. Patient did present episode of nonbloody diarrhea approximately one month ago with lasted five days (4-5 bowel movements with brown stool a day of watery stool), which then was followed by constipation which will last a proximally three days. Patient also presents numbness on right upper limb which is exacerbation after sleeping. Denies any other associated symptom. Past medical history: Hypertension, gastritis, diverticulosis, GERD, COPD with previous home oxygen requirement (has been weaned off one year ago) arthritis, one episode of seizures a proximally one year ago in [place] (no antiseizure medication), chronic kidney disease stage IIIB, bladder prolapse status postop with recurrence. Surgical history: Bilateral knee replacement: Cholecystectomy, left hip replacement, prolapse repair, colonoscopy five years ago within normal limits Family history: Mother had colon cancer Social history: Lives in [place] with family (next of kin daughter). Suffered from secondhand smoking. Denies current tobacco, alcohol and other drug abuse Allergies: Denies Home medication: Amlodipine, pantoprazole, hydrochlorothiazide, citalopram Patient seen and examined at bedside. Currently has no new complaints. Admitted for further evaluation. Symptomatic hypercalcemia (generalized weakness and constipation) - probably secondary to hydrochlorothiazide Mechanical fall secondary to generalized weakness Rule out GI obstruction SUKHWINDER hemodynamically mediated (VMN) on CKD stage 3 B Large hiatal hernia Probable Colitis Gastritis GERD Rule out left hip fracture (previous left hip replacement) disease Hyperbilirubinemia COPD History of seizures Status post bilateral knee replacement Status post cholecystectomy Status post bladder prolapse repair with recurrence Obesity mechanical fall with possible left hip fracture pending evaluation by ortho PLAN Patient admitted to telemetry Completed abdomen and pelvis CT which showed large hiatal hernia and left hemithorax, colitis, large stool burden and moderate gastric antrum thickening (compatible with gastritis) Probable cause of hypercalcemia is hydrochlorothiazide. Discontinued. Indicated IV fluids, IV pantoprazole and NPO. Indicated Fleet enema. Ordered PTH Ordered Gastrografin to rule out obstruction If patient presents obstruction, consult surgical dental assistant. Ordered x-ray of left hip and pelvis. Goals of care discussed with patient for over 18 minutes: DNR/DNI Plan discussed with: Patient My Orders Orders - SOPHIE SILVA DO Procedure Category Date Status Time *Consult Dr. Hewitt CONS 09/28/25 Transmitted [place] 13:32 Pt Request For Service PT 09/28/25 Logged 13:32 Date of Service: Sep 28, 2025 Billing Provider: SOPHIE SILVA DO Common Visit Codes: [id number] INP/OBS CARE(HIGH) SOPHIE SILVA DO Sep 29, 2025 01:04
[2025-09-29] MEDS: ONDANSETRON HCL 4 MG/2 ML VIAL IV PRN (06:07)
[2025-09-29] MEDS: GASTROGRAFIN 30 ML SOL ONE (10:09)
--- NOTE | 2025-09-29 15:47 | DVH ---
Procedure: XY SMALL BOWEL SERIES-W GASTROGRA Reason for study/Clinical History: Evaluate obstruction Comparison Study: None Technique: Single contrast small bowel series performed. FINDINGS/IMPRESSION: Initial speaker wirer view of the abdomen and pelvis appears demonstrates no acute process. Contrast is identified within the colon by 3 hours. This represents a mild delay in small bowel transit time without evidence of obstruction.
--- NOTE | 2025-09-29 17:10 | DVHPN2 ---
Subjective in bed resting Reviewed: Care Plan, H&P, Labs, Medications Changes from previous H/P or p: No Changes General: Per HPI Objective Vitals Vital Signs Date Time Temp Pulse Resp B/P (MAP) Pulse Ox O2 Delivery O2 Flow Rate FiO2 09/29/25 17:00 97.6 74 14 132/75 (94) 95 97.6 09/28/25 20:00 Nasal Cannula* 3 32 Intake/Output Intake and Output 09/29/25 05:00 Intake Total 3700 ml Balance 3700 ml Intake Oral 1500 ml IV Total 2200 ml # Voids 10 # Bowel Movements 4 General Appearance: Alert, Oriented X3 Cardiovascular: Regular rate, Normal S1 Medications Current Medications Medications Dose Ordered Sig/Anthony Route Start Time Stop Time Status Last Admin Dose Admin Acetaminophen 325 mg Q4HP PRN PO 09/26/25 10:15 09/29/25 09:43 325 MG Ondansetron HCl 4 mg Q4HP PRN IV 09/26/25 10:15 09/29/25 06:07 4 MG Enoxaparin Sodium 40 mg DAILY SC 09/27/25 10:00 09/29/25 09:43 40 MG Nitroglycerin 0.4 mg Q5MINP PRN SL 09/26/25 10:15 Morphine Sulfate 2 mg Q30M PRN IV 09/26/25 10:15 Sodium Chloride 1,000 ml @ 75 mls/hr [id number] IV 09/26/25 10:15 09/28/25 21:11 75 MLS/HR Metronidazole 100 ml @ 100 mls/hr Q8HR IV 09/26/25 22:00 09/29/25 14:24 100 MLS/HR Ceftriaxone Sodium 50 ml @ 100 mls/hr DAILY@09 IV 09/27/25 09:00 09/29/25 09:42 100 MLS/HR Pantoprazole Sodium 40 mg BID IV 09/26/25 22:00 09/29/25 09:42 40 MG Laboratory Results Laboratory Tests 09/28/25 04:48 Urinalysis Test 09/26/25 10:42 Urine Color Light-yellow (Yellow) Urine Clarity Clear (Clear) Urine pH 7.5 (5.0-9.0) Urine Specific [place] 1.025 (1.001-1.035) Urine Protein 1+ (Negative) H Urine Ketones Negative (Negative) Urine Blood Negative /uL (Negative) Urine Nitrite Negative (Negative) Urine Bilirubin Negative (Negative) Urine Urobilinogen Normal mg/dL (Negative) Urine Leukocyte Esterase Negative /uL (Negative) Urine RBC None seen /hpf (0 - 4) Urine Microscopic WBC < 1 /HPF (0-5) Urine Squamous Epithelial Cells Few /hpf (<5) Urine Bacteria None seen /hpf (None Seen) Urine Glucose Normal mg/dL (Normal) Assessment/Plan Assessment/Plan Christine Bradshaw is a 79-year-old female patient who presents to the ED with chief complaint of generalized weakness with mechanical fall no loss of consciousness or trauma to her left hip, with posterior nausea and nonbloody vomiting with brown/white emesis, patient believes these symptoms were secondary to eating excessively in at 3:00 p.m.. Patient also reports intentional weight loss of over 50 lb in the past two months (234 lb to 189 lb), she is avoiding sweets. Patient did present episode of nonbloody diarrhea approximately one month ago with lasted five days (4-5 bowel movements with brown stool a day of watery stool), which then was followed by constipation which will last a proximally three days. Patient also presents numbness on right upper limb which is exacerbation after sleeping. Denies any other associated symptom. Past medical history: Hypertension, gastritis, diverticulosis, GERD, COPD with previous home oxygen requirement (has been weaned off one year ago) arthritis, one episode of seizures a proximally one year ago in [place] (no antiseizure medication), chronic kidney disease stage IIIB, bladder prolapse status postop with recurrence. Surgical history: Bilateral knee replacement: Cholecystectomy, left hip replacement, prolapse repair, colonoscopy five years ago within normal limits Family history: Mother had colon cancer Social history: Lives in [place] with family (next of kin daughter). Suffered from secondhand smoking. Denies current tobacco, alcohol and other drug abuse Allergies: Denies Home medication: Amlodipine, pantoprazole, hydrochlorothiazide, citalopram Patient seen and examined at bedside. Currently has no new complaints. Admitted for further evaluation. Symptomatic hypercalcemia (generalized weakness and constipation) - probably secondary to hydrochlorothiazide Mechanical fall secondary to generalized weakness Rule out GI obstruction SUKHWINDER hemodynamically mediated (VMN) on CKD stage 3 B Large hiatal hernia Probable Colitis Gastritis GERD Rule out left hip fracture (previous left hip replacement) disease Hyperbilirubinemia COPD History of seizures Status post bilateral knee replacement Status post cholecystectomy Status post bladder prolapse repair with recurrence Obesity mechanical fall with possible left hip fracture pending evaluation by ortho PLAN Patient admitted to telemetry Completed abdomen and pelvis CT which showed large hiatal hernia and left hemithorax, colitis, large stool burden and moderate gastric antrum thickening (compatible with gastritis) Probable cause of hypercalcemia is hydrochlorothiazide. Discontinued. Indicated IV fluids, IV pantoprazole and NPO. Indicated Fleet enema. Ordered PTH Ordered Gastrografin to rule out obstruction If patient presents obstruction, consult assembler surgical garment. Ordered x-ray of left hip and pelvis. Plan discussed with: Patient Date of Service: Sep 29, 2025 Billing Provider: CAIO AZEVEDO MD Common Visit Codes: [id number] INP/OBS CARE(HIGH) CAIO AZEVEDO MD Sep 29, 2025 17:10
--- NOTE | 2025-09-29 19:45 | DVHINCON2 ---
Consult Note Consult Consult Note Orthopedic Consult Note Reason for Consult: Right pelvic ramus fracture after ground-level fall History of Present Illness The patient is an adult female admitted after a ground-level fall approximately 34 days ago. She was initially evaluated in the Emergency Department where imaging was performed, revealing a right superior-inferior pubic ramus fracture. She was admitted primarily for dizziness/Fall workup and pain control. Today on evaluation, the patient reports significantly managed right hip pain, which is now well controlled on oral pain medication. She denies new numbness, tingling, weakness, new groin pain, or worsening symptoms. No distress noted during the interview. She has a prior history of a right hip roly-arthroplasty, with no reported prior complications. Base line ambulation is with walker at home. Imaging Pelvis X-ray: Bipolar right hip prosthesis is in position and there is no dislocation. Possible nondisplaced fracture of the superior and inferior pubic ramus on the right. Joint alignment maintained No additional acute osseous injury noted Physical Examination General: No acute distress; comfortable at rest Right Hip / Pelvis: No visible deformity Localized tenderness consistent with ramus fracture Neurologic/Vascular: Gross neurovascular status intact distally Sensation intact; motor function preserved; pulses palpable Gait/Mobility: Limited due to pain; requires assistive device Assessment 1. Right superior and inferior pubic ramus fracture, non-displaced, stable pattern 2. History of right hip roly-arthroplasty hardware intact, no loosening 3. Pain improving and currently well controlled 4. Medically stable from an orthopedic standpoint This is a stable pelvic ring injury and appropriate for non-operative management. Plan Weight-bearing as tolerated with Walker recommended for approximately 6 weeks Continue oral pain medication as needed per primary team Outpatient orthopedic follow-up in 710 days for repeat pelvis X-ray and reassessment Continue DVT prophylaxis per hospital protocol PT/OT for safe ambulation prior to discharge No surgical intervention indicated at this time From an orthopedic perspective, patient is stable for discharge once cleared by the primary team and physical therapy Disposition Stable from orthopedic standpoint Cleared for discharge when primary team and PT deem appropriate Follow-up instructions communicated; all questions addressed Plan discussed with: Patient, Other (bedside nurse) Visit Coding Surgery Date of Service if different f: Sep 29, 2025 Billing Provider: VIKTOR CAMPBELL Surgery Visit Codes: [id number] - INP CONSULT <55 MIN VIKTOR CAMPBELL Sep 29, 2025 19:45
[2025-09-30] VITALS (7 sets, daily range): BP systolic 108–125; BP diastolic 48–68; PULSE 51–70; RESP 17–18; TEMP 97.3–98.6; O2SAT 96–98
[2025-09-30 12:14] LABS: Anion Gap 7 (5-15); Calcium 10.2 mg/dL (8.7-10.4); Carbon Dioxide 29 mmol/L (20-31)
[2025-09-30 12:17] LABS: Hematocrit 33.6 % (36.0-46.0); Hemoglobin 11.0 g/dL (12.2-16.2); Mean Corpuscular Hemoglobin 29.1 pg (28.0-32.0); Mean Corpuscular Volume 89.0 fL (80.0-100.0); Nucleated Red Blood Cells % 0.1 %
[2025-09-30 12:19] LABS: BUN/Creatinine Ratio 10.2 (10.0-20.0); Blood Urea Nitrogen 11 mg/dL (9-23)
[2025-09-30 12:28] LABS: Chloride 109 mmol/L (98-107); Glucose 136 mg/dL (74-106); Potassium 3.4 mmol/L (3.5-5.1); Sodium 145 mmol/L (136-145)
[2025-09-30] MEDS ORDERED: AUG875T PO (13:14)
[2025-09-30] MEDS ORDERED: POTA-220 PO (13:14)
[2025-09-30 15:37] LABS: Base Excess -1.6 mmol/L (-2.0-3.0)
--- NOTE | 2025-09-30 17:38 | DVHPN2 ---
Subjective in bed resting Reviewed: Care Plan, H&P, Labs, Medications Changes from previous H/P or p: No Changes General: Per HPI Objective Vitals Vital Signs Date Time Temp Pulse Resp B/P (MAP) Pulse Ox O2 Delivery O2 Flow Rate FiO2 09/30/25 13:00 98.4 62 18 115/65 (82) 96 98.4 09/30/25 08:00 Nasal Cannula* 3 32 Intake/Output Intake and Output 09/30/25 05:00 Intake Total 840 ml Balance 840 ml Intake Oral 640 ml IV Total 200 ml # Voids 5 # Bowel Movements 5 General Appearance: Alert, Oriented X3 Cardiovascular: Regular rate, Normal S1 Medications Current Medications Medications Dose Ordered Sig/Anthony Route Start Time Stop Time Status Last Admin Dose Admin Acetaminophen 325 mg Q4HP PRN PO 09/26/25 10:15 09/30/25 06:26 325 MG Ondansetron HCl 4 mg Q4HP PRN IV 09/26/25 10:15 09/29/25 06:07 4 MG Enoxaparin Sodium 40 mg DAILY SC 09/27/25 10:00 09/30/25 11:11 40 MG Nitroglycerin 0.4 mg Q5MINP PRN SL 09/26/25 10:15 Morphine Sulfate 2 mg Q30M PRN IV 09/26/25 10:15 Sodium Chloride 1,000 ml @ 75 mls/hr [id number] IV 09/26/25 10:15 09/30/25 11:11 75 MLS/HR Metronidazole 100 ml @ 100 mls/hr Q8HR IV 09/26/25 22:00 09/30/25 06:22 100 MLS/HR Ceftriaxone Sodium 50 ml @ 100 mls/hr DAILY@09 IV 09/27/25 09:00 09/29/25 09:42 100 MLS/HR Pantoprazole Sodium 40 mg BID IV 09/26/25 22:00 09/30/25 11:10 40 MG Laboratory Results Laboratory Tests 09/30/25 11:42 Chemistry Test 09/30/25 11:42 Calcium Level 10.2 mg/dL (8.7-10.4) Urinalysis Test 09/26/25 10:42 Urine Color Light-yellow (Yellow) Urine Clarity Clear (Clear) Urine pH 7.5 (5.0-9.0) Urine Specific [place] 1.025 (1.001-1.035) Urine Protein 1+ (Negative) H Urine Ketones Negative (Negative) Urine Blood Negative /uL (Negative) Urine Nitrite Negative (Negative) Urine Bilirubin Negative (Negative) Urine Urobilinogen Normal mg/dL (Negative) Urine Leukocyte Esterase Negative /uL (Negative) Urine RBC None seen /hpf (0 - 4) Urine Microscopic WBC < 1 /HPF (0-5) Urine Squamous Epithelial Cells Few /hpf (<5) Urine Bacteria None seen /hpf (None Seen) Urine Glucose Normal mg/dL (Normal) Blood Gas Results Test 09/30/25 15:31 Arterial Blood pH 7.390 (7.350-7.450) FiO2 % 21.0 Assessment/Plan Assessment/Plan Christine Bradshaw is a 79-year-old female patient who presents to the ED with chief complaint of generalized weakness with mechanical fall no loss of consciousness or trauma to her left hip, with posterior nausea and nonbloody vomiting with brown/white emesis, patient believes these symptoms were secondary to eating excessively in at 3:00 p.m.. Patient also reports intentional weight loss of over 50 lb in the past two months (234 lb to 189 lb), she is avoiding sweets. Patient did present episode of nonbloody diarrhea approximately one month ago with lasted five days (4-5 bowel movements with brown stool a day of watery stool), which then was followed by constipation which will last a proximally three days. Patient also presents numbness on right upper limb which is exacerbation after sleeping. Denies any other associated symptom. Past medical history: Hypertension, gastritis, diverticulosis, GERD, COPD with previous home oxygen requirement (has been weaned off one year ago) arthritis, one episode of seizures a proximally one year ago in [place] (no antiseizure medication), chronic kidney disease stage IIIB, bladder prolapse status postop with recurrence. Surgical history: Bilateral knee replacement: Cholecystectomy, left hip replacement, prolapse repair, colonoscopy five years ago within normal limits Family history: Mother had colon cancer Social history: Lives in [place] with family (next of kin daughter). Suffered from secondhand smoking. Denies current tobacco, alcohol and other drug abuse Allergies: Denies Home medication: Amlodipine, pantoprazole, hydrochlorothiazide, citalopram Patient seen and examined at bedside. Currently has no new complaints. Admitted for further evaluation. Symptomatic hypercalcemia (generalized weakness and constipation) - probably secondary to hydrochlorothiazide Mechanical fall secondary to generalized weakness Rule out GI obstruction SUKHWINDER hemodynamically mediated (VMN) on CKD stage 3 B Large hiatal hernia Probable Colitis Gastritis GERD Rule out left hip fracture (previous left hip replacement) disease Hyperbilirubinemia COPD History of seizures Status post bilateral knee replacement Status post cholecystectomy Status post bladder prolapse repair with recurrence Obesity mechanical fall with possible left hip fracture pending evaluation by ortho PLAN Patient admitted to telemetry Completed abdomen and pelvis CT which showed large hiatal hernia and left hemithorax, colitis, large stool burden and moderate gastric antrum thickening (compatible with gastritis) Probable cause of hypercalcemia is hydrochlorothiazide. Discontinued. Indicated IV fluids, IV pantoprazole and NPO. Indicated Fleet enema. Ordered PTH Ordered Gastrografin to rule out obstruction If patient presents obstruction, consult neurosurgical nurse practitioner. Ordered x-ray of left hip and pelvis. 09/30 Ca back to normal oxygen eval and needs oxygen at home Plan discussed with: Patient My Orders Orders - CAIO AZEVEDO MD Procedure Category Date Status Time Discharge DISCHARGE 09/30/25 Transmitted 13:15 Abg W/ Co-Ox RT 09/30/25 Logged 15:07 Date of Service: Sep 30, 2025 Billing Provider: CAIO AZEVEDO MD Common Visit Codes: [id number] INP/OBS CARE(HIGH) CAIO AZEVEDO MD Sep 30, 2025 17:38
[2025-10-01 01:00] VITALS: BP 120/65; PULSE 58; RESP 17; TEMP 97.8; O2SAT 98
[2025-10-01 05:00] VITALS: BP 120/73; PULSE 52; RESP 17; TEMP 98; O2SAT 96
[2025-10-01 08:05] VITALS: PULSE 48
[2025-10-01 12:15] VITALS: BP 132/78; PULSE 53; RESP 17; TEMP 98.4; O2SAT 97
== END 2025-10-01 15:36 | disposition home or self-care (01) | DRG 535 ==
LOC: ER 03:56 → EDBD 03:56 → OVERFLOW 10:15 → TELE-WESTW 12:44
PROVIDERS: ADMIT Hospitalist; ATTEND Hospitalist
DX: S32.591A Other specified fracture of right pubis, initial encounter for closed fracture (principal); N17.0 Acute kidney failure with tubular necrosis; Z66 Do not resuscitate; J44.9 Chronic obstructive pulmonary disease, unspecified; I12.9 Hypertensive chronic kidney disease with stage 1 through stage 4 chronic kidney disease, or unspecified chronic kidney disease; E11.22 Type 2 diabetes mellitus with diabetic chronic kidney disease; E66.9 Obesity, unspecified; N18.32 Chronic kidney disease, stage 3b; K52.9 Noninfective gastroenteritis and colitis, unspecified; I16.0 Hypertensive urgency; K21.9 Gastro-esophageal reflux disease without esophagitis; K29.70 Gastritis, unspecified, without bleeding; K44.9 Diaphragmatic hernia without obstruction or gangrene; Z96.642 Presence of left artificial hip joint; Z96.653 Presence of artificial knee joint, bilateral; Z77.22 Contact with and (suspected) exposure to environmental tobacco smoke (acute) (chronic); E83.52 Hypercalcemia; E80.6 Other disorders of bilirubin metabolism; K59.00 Constipation, unspecified; Z96.641 Presence of right artificial hip joint; T50.2X5A Adverse effect of carbonic-anhydrase inhibitors, benzothiadiazides and other diuretics, initial encounter; W18.39XA Other fall on same level, initial encounter; Z90.49 Acquired absence of other specified parts of digestive tract; Z80.0 Family history of malignant neoplasm of digestive organs; Y92.89 Other specified places as the place of occurrence of the external cause; Y93.89 Activity, other specified; Y99.8 Other external cause status; Z68.35 Body mass index [BMI] 35.0-35.9, adult
CPT/HCPCS: 36415; 36600; 71045; 72170; 74177; 74250; 80048; 80053; 80061; 80307; 81001; 82140; 82306; 82607; 82805; 83036; 83605; 83690; 83735; 83970; 84100; 84443; 85025; 85610; 85730; 93005; 93306; 97110; 97116; 97163; 97530; G0378; J2405; J2470; J3490